=== PATIENT | male | born 1995 | race Two or more races ===

== ENCOUNTER 2021-08-07 16:33 | Emergency (ER) | payer SELFPAY ==
[~2021-08-07] VITALS: Ht 188 cm; Wt 86.2 kg
[2021-08-07 17:58] LABS: Basophils # (auto) 0.1 10 ^3/uL (0-0.2); Basophils % (auto) 0.6 % (0.0-2.0); Eosinophils # (auto) 0.1 10 ^3/uL (0-0.8); Eosinophils % (auto) 0.7 % (0.0-7.0); Hematocrit 42.3 % (41.0-53.0); Hemoglobin 14.7 g/dL (13.5-17.5); Lymphocytes # (auto) 2.4 10 ^3/uL (0.4-5.4); Lymphocytes % (auto) 23.1 % (10.0-50.0); Mean Corpuscular Hemoglobin 30.6 pg (28.0-32.0); Mean Corpuscular Hgb Conc. 34.7 g/dL (32.0-36.0); Mean Corpuscular Volume 88.3 fL (80.0-100.0); Monocytes # (auto) 0.8 10 ^3/uL (0-1.3); Monocytes % (auto) 7.9 % (0.0-12.0); Neutrophils # (auto) 7.1 10 ^3/uL (1.6-8.6); Neutrophils % (auto) 67.7 % (37.0-80.0); Nucleated Red Blood Cells % 0.1 %; Red Blood Cells 4.79 10^6/uL (4.5-5.90); Red Cell Distribution Width 12.4 % (11.8-14.3); White Blood Cell 10.4 10^3/uL (4.4-10.8)
[2021-08-07 18:10] LABS: Albumin 3.7 g/dL (3.4-5.0); Anion Gap 2 (5-15); Blood Alcohol < 3.0 mg/dL (0-5); Blood Urea Nitrogen 16 mg/dL (7-18); Calcium 8.5 mg/dL (8.5-10.1); Carbon Dioxide 28 mmol/L (21-32); Chloride 108 mmol/L (98-107); Glucose 103 mg/dL (74-106); Potassium 4.9 mmol/L (3.5-5.1); Sodium 138 mmol/L (136-145)
[2021-08-07 18:14] LABS: Alanine Aminotransferase 37 U/L (16-61); Alkaline Phosphatase 87 U/L (45-117); Aspartate Aminotransferase 27 U/L (15-37); BUN/Creatinine Ratio 11.9; Bilirubin, Total 0.5 mg/dL (0.2-1.0); GFR African American 83 mL/min; GFR Non-African American 68 mL/min; Total Protein 7.3 g/dL (6.4-8.2)
[2021-08-07 22:51] VITALS: BP 118/50
== END 2021-08-07 22:48 | disposition home or self-care (01) ==
LOC: EDBD 16:33 → ER 16:33
DX: R07.89 Other chest pain (principal); F17.210 Nicotine dependence, cigarettes, uncomplicated
CPT/HCPCS: 36415; 71045; 80053; 80320; 80329; 85025; 93005

== ENCOUNTER 2022-05-06 21:10 | Inpatient (IN) | payer SELFPAY ==
[~2022-05-06] VITALS: Ht 188 cm; Wt 87.8 kg
[2022-05-06] MEDS ORDERED: NALOXONE HCL 1MG/ML 2ML SYRINGE ONE (21:11)
[2022-05-06] MEDS ORDERED: NALOXONE HCL 1MG/ML 2ML SYRINGE IV ONE (21:20)
[2022-05-06] MEDS ORDERED: SODIUM CHLORIDE 0.9% 1,000 ML IV ONE (21:30)
[2022-05-06] MEDS ORDERED: ONDANSETRON HCL 4 MG/2 ML VIAL ONE (21:48)
[2022-05-06] MEDS ORDERED: ONDANSETRON HCL 4 MG/2 ML VIAL IV ONE (21:50)
[2022-05-07 00:47] LABS: Alanine Aminotransferase 63 U/L (16-61); Albumin 3.8 g/dL (3.4-5.0); Anion Gap 3 (5-15); Aspartate Aminotransferase 38 U/L (15-37); Blood Alcohol < 3.0 mg/dL (0-5); Blood Urea Nitrogen 11 mg/dL (7-18); Calcium 8.6 mg/dL (8.5-10.1); Carbon Dioxide 30 mmol/L (21-32); Chloride 110 mmol/L (98-107); GFR African American 81 mL/min; GFR Non-African American 67 mL/min; Glucose 103 mg/dL (74-106); Salicylate < 1.7 mg/dL (2.8-20.0); Sodium 143 mmol/L (136-145)
[2022-05-07 00:50] LABS: Alkaline Phosphatase 78 U/L (45-117); Bilirubin, Total 0.4 mg/dL (0.2-1.0); Creatine Kinase IFCC 160 U/L (39-308); Total Protein 7.1 g/dL (6.4-8.2)
[2022-05-07 00:52] LABS: Acetaminophen < 2.0 ug/mL (10-30)
[2022-05-07 02:14] LABS: Basophils # (auto) 0 10 ^3/uL (0-0.2); Basophils % (auto) 0.1 % (0.0-2.0); Eosinophils # (auto) 0 10 ^3/uL (0-0.8); Eosinophils % (auto) 0.1 % (0.0-7.0); Hematocrit 43.4 % (41.0-53.0); Hemoglobin 14.5 g/dL (13.5-17.5); Lymphocytes # (auto) 1.7 10 ^3/uL (0.4-5.4); Lymphocytes % (auto) 11.9 % (10.0-50.0); Mean Corpuscular Hemoglobin 29.6 pg (28.0-32.0); Mean Corpuscular Hgb Conc. 33.3 g/dL (32.0-36.0); Mean Corpuscular Volume 88.8 fL (80.0-100.0); Monocytes # (auto) 0.9 10 ^3/uL (0-1.3); Monocytes % (auto) 6.1 % (0.0-12.0); Neutrophils # (auto) 11.4 10 ^3/uL (1.6-8.6); Neutrophils % (auto) 81.8 % (37.0-80.0); Red Blood Cells 4.89 10^6/uL (4.5-5.90); White Blood Cell 13.9 10^3/uL (4.4-10.8)
[2022-05-07] MEDS ORDERED: ONDANSETRON HCL 4 MG/2 ML VIAL IV PRN (02:30)
[2022-05-07] MEDS ORDERED: DOCUSATE SOD 100 MG CAP PO PRN (02:30)
[2022-05-07] MEDS ORDERED: MORPHINE SULFATE INJ 2 MG/ml SYRG IV PRN ×2 (02:30→03:00)
[2022-05-07] MEDS ORDERED: IBUPROFEN 600 MG TAB PO PRN (02:30)
[2022-05-07] MEDS ORDERED: cefTRIAXone 1GM/50ML D5W 50 ML IV ONE (02:30)
[2022-05-07] MEDS ORDERED: NITROGLYCERIN 0.4 MG SL TAB SL PRN (03:00)
[2022-05-07 04:01] LABS: Albumin 3.4 g/dL (3.4-5.0); BUN/Creatinine Ratio 10.3; Calcium 8.5 mg/dL (8.5-10.1); Potassium 4.6 mmol/L (3.5-5.1)
[2022-05-07 04:23] LABS: Bilirubin, Total 0.4 mg/dL (0.2-1.0); Total Protein 6.5 g/dL (6.4-8.2)
[2022-05-07 04:43] LABS: Basophils # (auto) 0.1 10 ^3/uL (0-0.2); Basophils % (auto) 0.4 % (0.0-2.0); Eosinophils # (auto) 0 10 ^3/uL (0-0.8); Eosinophils % (auto) 0.2 % (0.0-7.0); Hematocrit 45.5 % (41.0-53.0); Lymphocytes # (auto) 2.9 10 ^3/uL (0.4-5.4); Lymphocytes % (auto) 19.4 % (10.0-50.0); Mean Corpuscular Hgb Conc. 32.9 g/dL (32.0-36.0); Mean Corpuscular Volume 88.2 fL (80.0-100.0); Monocytes # (auto) 1.1 10 ^3/uL (0-1.3); Monocytes % (auto) 7.2 % (0.0-12.0); Neutrophils % (auto) 72.8 % (37.0-80.0); Nucleated Red Blood Cells % 0.1 %; Red Blood Cells 5.16 10^6/uL (4.5-5.90); Red Cell Distribution Width 13.2 % (11.8-14.3)
[2022-05-07 05:17] LABS: Alcohol, Urine < 3.0 mg/dL (0-10); Amphetamine Screen, Urine POSITIVE (NEGATIVE); Barbiturate Scree,Urine NEGATIVE (NEGATIVE); Benzodiazephine Screen, Urine NEGATIVE (NEGATIVE); Cannabinoid Screen, Urine POSITIVE (NEGATIVE); Cocaine Screen, Urine NEGATIVE (NEGATIVE); Phencyclidine Screen, Urine NEGATIVE (NEGATIVE)
[2022-05-07 05:24] LABS: Opiate Scree,Urine NEGATIVE (NEGATIVE)
[2022-05-07] MEDS: SODIUM CHLOR 0.9% PF (SALINE LOCK) 10ML VIAL/SYR IV SCH ×2 (06:13→16:08)
[2022-05-07] MEDS: cefTRIAXone 1GM/50ML D5W 50 ML IV SCH (07:56)
[2022-05-07 15:37] VITALS: BP 116/61
[2022-05-07 15:53] VITALS: BP 116/61
[2022-05-07 20:00] VITALS: BP 107/72
[2022-05-07 22:00] VITALS: BP 107/72
[2022-05-08 05:00] VITALS: BP 122/62
[2022-05-08] MEDS: SODIUM CHLOR 0.9% PF (SALINE LOCK) 10ML VIAL/SYR IV SCH ×4 (05:01→21:14)
[2022-05-08 06:28] LABS: Basophils # (auto) 0.1 10 ^3/uL (0-0.2); Basophils % (auto) 0.8 % (0.0-2.0); Eosinophils # (auto) 0.3 10 ^3/uL (0-0.8); Eosinophils % (auto) 2.5 % (0.0-7.0); Hematocrit 43.9 % (41.0-53.0); Hemoglobin 14.9 g/dL (13.5-17.5); Lymphocytes # (auto) 3.7 10 ^3/uL (0.4-5.4); Lymphocytes % (auto) 30.8 % (10.0-50.0); Mean Corpuscular Hemoglobin 29.4 pg (28.0-32.0); Mean Corpuscular Hgb Conc. 33.8 g/dL (32.0-36.0); Mean Corpuscular Volume 86.8 fL (80.0-100.0); Monocytes # (auto) 1.1 10 ^3/uL (0-1.3); Monocytes % (auto) 8.9 % (0.0-12.0); Neutrophils # (auto) 6.9 10 ^3/uL (1.6-8.6); Red Blood Cells 5.06 10^6/uL (4.5-5.90); Red Cell Distribution Width 12.9 % (11.8-14.3)
[2022-05-08 06:49] LABS: Albumin 3.5 g/dL (3.4-5.0); Calcium 9.1 mg/dL (8.5-10.1); Potassium 4.2 mmol/L (3.5-5.1)
[2022-05-08 06:52] LABS: BUN/Creatinine Ratio 12.8; Bilirubin, Total 0.6 mg/dL (0.2-1.0); Total Protein 6.8 g/dL (6.4-8.2)
[2022-05-08 09:00] VITALS: BP 119/77
[2022-05-08] MEDS: cefTRIAXone 1GM/50ML D5W 50 ML IV SCH (10:18)
[2022-05-08 13:00] VITALS: BP 125/66
[2022-05-08 17:00] VITALS: BP 120/72
[2022-05-08 22:00] VITALS: BP 108/57
[2022-05-09 05:00] VITALS: BP 113/63
[2022-05-09] MEDS: SODIUM CHLOR 0.9% PF (SALINE LOCK) 10ML VIAL/SYR IV SCH (05:37)
[2022-05-09] MEDS: cefTRIAXone 1GM/50ML D5W 50 ML IV SCH (08:21)
[2022-05-09 09:15] VITALS: BP 122/54
== END 2022-05-09 10:30 | disposition left against medical advice (07) | DRG 918 ==
LOC: EDBD 21:10 → ER 21:10 → EEVIPCON 21:10 → TELE 05-07 02:59 → TELE-WESTW 05-07 15:16
PROVIDERS: ADMIT Nurse Practitioner Family; ATTEND Internal Medicine
DX: T40.411A Poisoning by fentanyl or fentanyl analogs, accidental (unintentional), initial encounter (principal); D72.829 Elevated white blood cell count, unspecified; F17.210 Nicotine dependence, cigarettes, uncomplicated; Z53.29 Procedure and treatment not carried out because of patient's decision for other reasons; Z20.822 Contact with and (suspected) exposure to COVID-19; Y92.89 Other specified places as the place of occurrence of the external cause
CPT/HCPCS: 36415; 71045; 80053; 80307; 80320; 80329; 82550; 84484; 85025; 93005; 96361; 96374; G0378; J0696; J2405

== ENCOUNTER 2023-11-02 16:57 | Emergency (ER) | payer SELFPAY ==
[~2023-11-02] VITALS: Ht 188 cm; Wt 86.3 kg
[2023-11-02 17:38] VITALS: BP 117/83; PULSE 82; RESP 18; TEMP 98.6; O2SAT 100
[2023-11-02] MEDS: SODIUM CHLORIDE 0.9% 250 ML IV ONE (17:57)
[2023-11-02] MEDS: cefTRIAXone 2GM/50ML D5W 50 ML IV ONE (17:57)
[2023-11-03] MEDS ORDERED: CEPH500C PO (17:14)
== END 2023-11-02 18:12 | disposition home or self-care (01) ==
LOC: ER 16:57
DX: L03.021 Acute lymphangitis of right finger (principal); F17.210 Nicotine dependence, cigarettes, uncomplicated
CPT/HCPCS: 96365; 99284; J0696

== ENCOUNTER 2023-11-03 16:08 | Emergency (ER) | payer SELFPAY ==
[~2023-11-03] VITALS: Ht 188 cm; Wt 88.6 kg
[2023-11-03 17:08] VITALS: BP 124/81; PULSE 85; RESP 18; TEMP 98.9; O2SAT 99
[2023-11-03] MEDS ORDERED: CEPH500C PO (17:14)
[2023-11-03] MEDS: cefTRIAXone SOD 1,000 MG VL IM ONE (17:26)
== END 2023-11-03 17:33 | disposition home or self-care (01) ==
LOC: ER 16:08
DX: L03.021 Acute lymphangitis of right finger (principal); F17.210 Nicotine dependence, cigarettes, uncomplicated; Z48.00 Encounter for change or removal of nonsurgical wound dressing; Z79.899 Other long term (current) drug therapy
CPT/HCPCS: 96372; 99283; J0696